=== PATIENT | female | born 2000 | race Caucasian/White ===

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

== ENCOUNTER 2018-04-10 17:27 | Outpatient (CLI) | END 2018-04-10 17:28 | disposition home or self-care (01) | LOC: LAB 17:27 | PROVIDERS: ATTEND Emergency Medicine | DX: J02.9 Acute pharyngitis, unspecified (principal) | CPT/HCPCS: 87651 ==

== ENCOUNTER 2019-04-17 16:31 | Emergency (ER) ==
[2019-04-17 16:33] VITALS: BP 105/71; TEMP 98; BMI 18.3
--- NOTE | 2019-04-17 16:48 | ED.PDOC ---
General ED Provider: Dr. VIDAL BOYKIN Chief Complaint: Headache Stated Complaint: I bruise easily and had a migraine SIMMONS this morning Time Seen by Physician: 16:30 Mode of Arrival: Walk-In Information Source: Patient Exam Limitations: No limitations Primary Care Provider: VIDAL SUE Nursing and Triage Documentation Reviewed and Agree: Yes Does patient meet sepsis criteria?: No If yes, has appropriate treatment been initiated?: No System Inflammatory Response Syndrome: Not Applicable Sepsis Protocol: For patient's 13 years and over: Temp is 96.8 and below OR 101 and greater Pulse >90 BPM Resp >20/minute Acutely Altered Mental Status Are patient's symptoms suggestive of a new infection, such as: -Pneumonia -Skin, Soft Tissue -Endocarditis -UTI -Bone, Joint Infection -Implantable Device -Acute Abdominal Infection -Wound Infection -Meningitis -Blood Stream Catheter Infection -Unknown Hematological Complaint Exam - Sickle Cell Crisis Complaint/Exam Patient Complains of: Reports: Unknown (seems to bruise easily -fatigued and headache) Review of Systems - Review Of Systems Constitutional: Reports: No symptoms Eyes: Reports: No symptoms Ears, Nose, Mouth, Throat: Reports: No symptoms Respiratory: Reports: No symptoms Cardiac: Reports: No symptoms GI: Reports: No symptoms : Reports: No symptoms Musculoskeletal: Reports: No symptoms Skin: Reports: No symptoms Neurological: Reports: No symptoms, Headache Endocrine: Reports: No symptoms Hematologic/Lymphatic: Reports: No symptoms, Anemia, Easy bruising All Other Systems: Reviewed and Negative Past Medical History - Past Medical History Previously Healthy: Yes Endocrine: Reports: None Cardiovascular: Reports: None Respiratory: Reports: None Hematological: Reports: None Gastrointestinal: Reports: None Genitourinary: Reports: None Neuro/Psych: Reports: None Musculoskeletal: Reports: None Cancer: Reports: None Last Menstrual Period: 04/03/19 - Surgical History General Surgical History: Reports: None - Family History Family History: Reports: None - Social History Smoking Status: Current some day smoker Hx Substance Use: No Alcohol Screening: None - Immunizations Tetanus Shot up to Date: No Physical Exam - Physical Exam Appearance: Well-appearing, No pain distress, Well-nourished, Thin Ill-appearing: Mild Eyes: ADRIANO, EOMI, Conjunctiva clear ENT: Ears normal, Nose normal, Oropharynx normal Respiratory: Airway patent, Breath sounds clear, Breath sounds equal, Respirations nonlabored Cardiovascular: RRR, Pulses normal, No rub, No murmur GI/: Soft, Nontender, No masses, Bowel sounds normal, No Organomegaly Musculoskeletal: Normal strength, ROM intact, No edema, No calf tenderness Skin: Warm, Dry, Normal color Neurological: Sensation intact, Motor intact, Reflexes intact, Cranial nerves intact, Alert, Oriented Psychiatric: Affect appropriate, Mood appropriate Critical Care Note - Critical Care Note Total Time (mins): 0 Course - Course Hematology/Chemistry: 04/17/19 16:58 04/17/19 16:58 Orders, Labs, Meds: Lab Review 04/17/19 04/17/19 04/17/19 16:58 16:58 16:58 WBC 6.02 RBC 4.20 Hgb 12.9 Hct 39.4 MCV 93.8 MCH 30.7 MCHC 32.7 RDW Coeff of Manan 12.3 Plt Count 175 Immature Gran % (Auto) 0.2 Neut % (Auto) 60.3 Lymph % (Auto) 31.4 [place] % (Auto) 6.6 Eos % (Auto) 1.0 Baso % (Auto) 0.5 Immature Gran # (Auto) 0.0 Neut # (Auto) 3.6 Lymph # (Auto) 1.9 [place] # (Auto) 0.4 Eos # (Auto) 0.1 Baso # (Auto) 0.0 PT 11.0 INR 1.13 APTT 29.9 Sodium 138.1 Potassium 3.71 Chloride 103.1 Carbon Dioxide 28.2 Anion Gap 10.51 BUN 14.7 Creatinine 0.71 Estimated GFR (MDRD) 105.00 BUN/Creatinine Ratio 20.70 Glucose 108.7 H Calcium 9.14 Total Bilirubin 0.58 AST 22.3 ALT 16.3 Alkaline Phosphatase 36.5 L Total Protein 7.70 Albumin 4.62 Globulin 3.08 Albumin/Globulin Ratio 1.50 Orders Category Date Time Status CBC W/ AUTO DIFF Stat LAB 04/17/19 16:58 Completed CMP [COMPREHENSIVE METABOLIC PANEL] Stat LAB 04/17/19 16:58 Completed PARTIAL THROMBOPLASTIN TIME Stat LAB 04/17/19 16:58 Completed PT WITH INR Stat LAB 04/17/19 16:58 Completed Vital Signs: Temp Pulse Resp BP Pulse Ox 04/17/19 16:31 98.0 F 84 18 105/71 98 Departure - Departure Time of Disposition: 17:40 Disposition: HOME SELF-CARE Discharge Problem: Headache, History of bruising easily Instructions: Migraine Headache (ED), Tension Headache (ED) Condition: Stable Pt referred to PMD for follow-up: Yes IPMP verified?: Yes Additional Instructions: Follow up with your pcp for additional evaluation of head ache and bruising Allergies/Adverse Reactions: Allergies No Known Drug Allergies Adverse Reaction (Verified 04/17/19 16:33) Home Medications: Ambulatory Orders Fluoxetine HCl [Prozac] 10 mg PO DAILY 04/17/19 Disposition Discussed With: Patient
== END 2019-04-17 17:58 | disposition home or self-care (01) ==
LOC: ED 16:31
DX: R51 Headache (principal); R23.3 Spontaneous ecchymoses; F17.210 Nicotine dependence, cigarettes, uncomplicated
CPT/HCPCS: 36415; 80053; 85025; 85610; 85730; 99283